=== PATIENT | male | born 1960 | race Caucasian/White ===

== ENCOUNTER 2021-06-10 12:04 | Emergency (ER) | payer BC, OTHER ==
[2021-06-10 12:14] VITALS: BP 133/75; PULSE 93
--- NOTE | 2021-06-10 13:06 | EDM.PDOC ---
ED HPI GENERAL MEDICAL PROBLEM - General Chief Complaint: General Stated Complaint: ribs injury Time Seen by Provider: 06/10/21 12:30 Source of Information: Reports: Patient History Limitations: Reports: No Limitations - History of Present Illness INITIAL COMMENTS - FREE TEXT/NARRATIVE: Patient presents to the ED for left rib pain for the last four days. He states he was leaning over the side of car working on it most of that day and had sudden onset of left rib pain and heard a "popping" noise. He had pain but it was tolerable. He is a smoker so is always short of breath, but over the last several days he has been more short of breath. Not enough to stop him from physical labor or stop smoking, but became concerned for a problem with his lung and decided to come in today for evaluation. NO fevers, no other injury or trauma . Onset Date: 06/07/21 Duration: Constant, Getting Worse Location: Reports: Chest Improves with: Reports: None Worsens with: Reports: Breathing, Movement Treatments AUTOPSY PATHOLOGIST: Reports: Acetaminophen, Other (see below) Other Treatments AUTOPSY PATHOLOGIST: states he has been taking 1000mg each dose - Related Data Allergies Allergy/AdvReac Type Severity Reaction Status Date / Time No Known Allergies Allergy Verified 06/10/21 12:56 Home Meds: Home Meds Acetaminophen 650 mg PO Q4HR PRN 10/25/14 [History] Mirtazapine 30 mg PO BEDTIME 10/25/14 [History] atorvaSTATin Calcium [Atorvastatin Calcium] 20 mg PO DAILY 10/25/14 [History] ALPRAZolam [Xanax] 1 mg PO ASDIRECTED PRN 06/10/21 [History] Hydrocodone/Acetaminophen [HYDROcodone-Acetaminophen 5-325 MG] 1 each PO Q6HR #10 tablet 06/10/21 [Rx] lisinopriL [Lisinopril] 0 mg PO DAILY 06/10/21 [History] traMADol [Ultram] 50 mg PO Q4H PRN #3 tab 06/10/21 [Rx] Past Medical History Cardiovascular History: Reports: Hypertension Respiratory History: Reports: COPD Social & Family History - Tobacco Use Tobacco Use Status *Q: Current Every Day Tobacco User Years of Tobacco use: 44 Packs/Tins Daily: 1 Used Tobacco, but Quit: No Second Hand Smoke Exposure: No - Caffeine Use Caffeine Use: Reports: None - Alcohol Use Days Per Week of Alcohol Use: 1 Number of Drinks Per Day: 1 Total Drinks Per Week: 1 Date of Last Drink: 06/09/21 - Recreational Drug Use Recreational Drug Use: No - Living Situation & Occupation Living situation: Reports: [id number] M, [id number] F Occupation: Employed ED ROS GENERAL - Review of Systems Review Of Systems: See Below Constitutional: Reports: No Symptoms. Denies: Fever, Chills HEENT: Reports: No Symptoms. Denies: Throat Swelling, Vision Change Respiratory: Reports: Shortness of Breath (chronically), Pleuritic Chest Pain (left) Cardiovascular: Reports: No Symptoms Endocrine: Reports: No Symptoms. Denies: Fatigue GI/Abdominal: Reports: No Symptoms. Denies: Nausea, Vomiting : Reports: No Symptoms Musculoskeletal: Reports: No Symptoms Skin: Reports: No Symptoms Neurological: Reports: No Symptoms Psychiatric: Reports: No Symptoms ED EXAM, GENERAL - Physical Exam Exam: See Below Exam Limited By: No Limitations General Appearance: Alert, WD/WN, No Apparent Distress Eye Exam: Bilateral Eye: EOMI, PERRL Nose: Normal Inspection Throat/Mouth: Normal Inspection, Normal Lips, Normal Voice Head: Atraumatic Neck: Normal Inspection, Supple Respiratory/Chest: No Respiratory Distress, Other (minimal tenderness to the left lower ribs, no subcutaneous air or crepitus). No: Respiratory Distress, Decreased Breath Sounds, Crackles Cardiovascular: Regular Rate, Rhythm, No Murmur GI/Abdominal: Normal Bowel Sounds, Soft, Non-Tender, Other (bruising on the abdomen healing, birthmark at the umbilicus). No: No Mass, Rigid, Rebound Extremities: Normal Range of Motion Neurological: Alert, Oriented, CN II-XII Intact, Normal Cognition Psychiatric: Normal Affect Skin Exam: Warm #1 Interpretation EKG Date: 06/10/21 Time: 13:27 Rhythm: NSR Rate (Beats/Min): 76 [place]: Normal P-Wave: Present QRS: Normal ST-T: Normal QT: Normal Comparison: NA - No Prior EKG Course - Vital Signs Last Recorded V/S: Last Vital Signs Temp 36.9 C 06/10/21 12:13 Pulse 93 06/10/21 12:13 Resp 20 06/10/21 12:13 BP 133/75 06/10/21 12:13 Pulse Ox 100 06/10/21 12:13 - Orders/Labs/Meds Orders: Active Orders 24 hr Category Date Time Status EKG Documentation Completion [RC] ASDIRECTED Care 06/10/21 13:06 Ordered Chest wo Cont [CT] Stat Exams 06/10/21 12:16 Taken - Radiology Interpretation Free Text/Narrative:: ct of chest interpreted by radiology, No acute cardiopulmonary process, no significant lung infiltrates or effusion. No acute osseus abnormality, no definitive rib fractures seen,, no pneumothorax. Calcification of the aorta and coronary arteries, chronic compression deformity at L1, stable from 2017 - Re-Assessments/Exams Free Text/Narrative Re-Assessment/Exam: 06/10/21 13:[address] of the chest to rule out ruptured bleb, fractured rib, EKG due to pain on the left chest to rule out cardiac. Pain is reproducible 06/10/21 13:56 Normal ekg, no rib fracture, discussed with patient need for deep breaths every couple of hours, 10 repetitions, does this already and does not need incentive spirometer. will send with tramadol from here #10 to use as it is the weekend. Given script for hydrocodone in case this does not help and he can take this instead and fill it tomorrow if not improving. will return for increased shortness off breath. Is aware of the compression fracture and is not bothering him Departure - Departure Time of Disposition: 13:45 Disposition: Home, Self-Care 01 Condition: Good Clinical Impression: Contusion of rib on left side - Discharge Information *PRESCRIPTION DRUG MONITORING PROGRAM REVIEWED*: Not Applicable *COPY OF PRESCRIPTION DRUG MONITORING REPORT IN PATIENT ABEL: Not Applicable Prescriptions: Hydrocodone/Acetaminophen [HYDROcodone-Acetaminophen 5-325 MG] 1 each PO Q6HR #10 tablet traMADol [Ultram] 50 mg PO Q4H PRN #3 tab PRN Reason: Pain (Mild 1-3) Instructions: Rib Contusion Referrals: Ke Starks PA [Primary Care Provider] - Forms: ED Department Discharge Additional Instructions: Use the tramadol every 6hours today as needed for pain. Fill prescription for hydrocodone 5/325 every 6 hours as needed for severe pain. Make sure you are take 10 deep breaths every couple of hours to prevent pneumonia. return to provider for worsening shortness of breath. The medication will cause constipation Sepsis Event Note (ED) - Evaluation Sepsis Screening Result: No Definite Risk - Focused Exam Vital Signs: Vital Signs Temp Pulse Resp BP Pulse Ox 06/10/21 12:13 36.9 C 93 20 133/75 100 - My Orders Last 24 Hours: My Active Orders 06/10/21 12:16 Chest wo Cont [CT] Stat 06/10/21 13:06 EKG Documentation Completion [RC] ASDIRECTED - Assessment/Plan Last 24 Hours: My Active Orders 06/10/21 12:16 Chest wo Cont [CT] Stat 06/10/21 13:06 EKG Documentation Completion [RC] ASDIRECTED
[2021-06-10] MEDS ORDERED: traMADol 50 MG Tab PO PRN (13:48)
== END 2021-06-10 14:05 | disposition home or self-care (01) ==
LOC: LL.ED 12:04
DX: S20.212A Contusion of left front wall of thorax, initial encounter (principal); I10 Essential (primary) hypertension; J44.9 Chronic obstructive pulmonary disease, unspecified; F17.200 Nicotine dependence, unspecified, uncomplicated; Z79.899 Other long term (current) drug therapy; X58.XXXA Exposure to other specified factors, initial encounter
CPT/HCPCS: 71250; 93005; 93010; 99284; 99284-25

== ENCOUNTER 2024-03-11 11:15 | Day surgery (SDC) | payer BC, OTHER ==
[~2024-03-11 11:15] MED LIST: Midazolam 1 MG/ML 2 ML SDV ONE; Propofol 200 MG/20 ML SDV ONE
[2024-03-11] MEDS: Lactated Ringers 1,000 ML IV SCH (11:49)
[2024-03-11] MEDS ORDERED: Sodium Chloride 0.9% 10 ML Syringe FLUSH PRN (12:00)
[2024-03-11 13:45] VITALS: BP 131/74; PULSE 82
== END 2024-03-11 13:20 | disposition home or self-care (01) ==
LOC: LL.SDS 11:15
PROVIDERS: ATTEND Surgery
DX: Z12.11 Encounter for screening for malignant neoplasm of colon (principal); D12.5 Benign neoplasm of sigmoid colon; E78.5 Hyperlipidemia, unspecified; F41.9 Anxiety disorder, unspecified; I10 Essential (primary) hypertension; F17.210 Nicotine dependence, cigarettes, uncomplicated; Z98.890 Other specified postprocedural states; Z79.899 Other long term (current) drug therapy
CPT/HCPCS: 00811; J2250; J2704; J7120